=== PATIENT | male | born 1935 | race Caucasian/White ===

== ENCOUNTER 2019-04-13 14:02 | Emergency (ER) | payer MEDICARE, OTHER ==
[~2019-04-13] VITALS: Ht 188 cm; Wt 85.6 kg
[2019-04-13 14:17] VITALS: BP 153/80
== END 2019-04-13 17:17 | disposition home or self-care (01) ==
LOC: ED 16:55
DX: L03.116 Cellulitis of left lower limb (principal); M13.172 Monoarthritis, not elsewhere classified, left ankle and foot; M10.9 Gout, unspecified; I25.2 Old myocardial infarction; J44.9 Chronic obstructive pulmonary disease, unspecified; Z88.0 Allergy status to penicillin; Z98.61 Coronary angioplasty status
CPT/HCPCS: 36415; 73630; 80048; 82040; 85025; 96372; 99284; J0696

== ENCOUNTER → 2020-12-24 | Outpatient (CLI) | payer MEDICARE, OTHER ==
[~2020-12-24] MED LIST: APIX5TAB PO; ASPI81TA45 PO; ATOR-2 PO; CARV6.2512 PO; DIGO125T85 PO; LISI5TAB7 PO; METO50TA82 PO; NITR0.4T28 SL; TICA90TA PO
== END | disposition home or self-care (01) ==
LOC: CFH 12:40
PROVIDERS: ATTEND Internal Medicine Cardiovascular Disease
DX: I08.8 Other rheumatic multiple valve diseases (principal); I10 Essential (primary) hypertension; E78.5 Hyperlipidemia, unspecified; I48.91 Unspecified atrial fibrillation; I25.2 Old myocardial infarction; J44.9 Chronic obstructive pulmonary disease, unspecified; I42.9 Cardiomyopathy, unspecified
CPT/HCPCS: 93306